=== PATIENT | male | born 1985 | race Two or more races ===

== ENCOUNTER 2018-11-11 23:40 | Emergency (ER) | payer MEDICARE ==
[~2018-11-11] VITALS: Ht 180.3 cm; Wt 69.0 kg
[2018-11-12 02:52] VITALS: BP 111/71
== END 2018-11-12 02:53 | disposition home or self-care (01) ==
LOC: ER 23:40
DX: Z76.0 Encounter for issue of repeat prescription (principal); Z87.820 Personal history of traumatic brain injury
CPT/HCPCS: 99283